=== PATIENT | female | born 1990 | race Caucasian/White ===

== ENCOUNTER 2016-06-13 05:17 | Inpatient (IN) | payer SELFPAY ==
--- NOTE | 2016-06-12 18:43 | History and Physical Report ---
History of Present Illness Date of examination: 06/12/16 Date of admission: 06/13/16 Chief complaint: pt presents for repeat c/s Past History Past Medical History: other (hx of depression) Past Surgical History: section (x2) Family/Genetic History: none Social history: no significant social history - Obstetrical History Expected Date of Delivery: 06/18/16 Actual Gestation: 39 Week(s) 1 Day(s) : 5 Hx # Term Pregnancies: 2 Number of Pregnancies: 1 Number of Living Children: 2 Medications and Allergies Allergies Allergy/AdvReac Type Severity Reaction Status Date / Time No Known Allergies Allergy Unverified 11/07/15 14:07 Home Medications Medication Instructions Recorded Confirmed Last Taken Type Famotidine [Pepcid] 20 mg PO BID #40 tablet 06/22/14 Unknown Rx Nitrofurantoin [place]/M-Cryst 100 mg PO Q12HR #14 capsule 06/22/14 Unknown Rx [Macrobid] Promethazine [Phenergan] 25 mg PO Q6H PRN #25 tablet 06/22/14 Unknown Rx Acetaminophen/Codeine [Tylenol #3] 1 tab PO Q6H PRN #10 tab 11/07/15 Unknown Rx Active Meds: Active Medications Citric Acid/Sodium Citrate (Bicitra) 30 ml PO ONCE ONE Stop: 06/12/16 18:37 Famotidine (Pepcid) 20 mg IV ONCE ONE Stop: 06/12/16 18:37 Cefazolin Sodium (Ancef/Sterile Water 2 Gm/20 Ml) 2 gm in 20 mls @ 80 mls/hr IV PREOP NR PRN Reason: Protocol Lactated Ringer's (Lactated Ringers) 1,000 mls @ 2,250 mls/hr IV PREOP JOSE Stop: 06/13/16 19:27 Oxytocin/Sodium Chloride (Pitocin/Ns 20 Unit/1000ml Drip) 20 units in 1,000 mls @ 0 mls/hr IV TITR OJSE PRN Reason: As Directed Lidocaine/Prilocaine (Emla) 1 applic TP ONCE PRN PRN Reason: for harrington catheter insertion Metoclopramide HCl (Reglan) 10 mg IV ONCE ONE Stop: 06/12/16 18:37 Review of Systems All systems: negative - Physical Exam Breasts: Positive: deferred Cardiovascular: Regular rate, Normal S1, Normal S2 Lungs: Positive: Clear to auscultation Abdomen: Positive: normal appearance Genitourinary (Female): Positive: normal external genitalia Vulva: both: normal Vagina: Positive: normal moisture Uterus: Positive: enlarged - Obstetrical FHR: auscultation normal Uterine Contraction Monitor Mode: External Cervical Dilatation: 0 Cervical Effacement Percentage: 0 station: -2 Uterine Contraction Pattern: Absent Results All other labs normal. Assessment and Plan iup at 39 weeks, previous c/s x2, hx of with congenital heart dz plan- prepare for repeat c/s.
[~2016-06-13 05:17] MED LIST: ANCEF/STERILE WATER 2 GM/20 ML 2 GM/20 ML SYRINGE IV NR; BICITRA PO ONE; EMLA TP PRN; PEPCID IV ONE; PITOCin/NS 20 UNIT/1000ML DRIP 20 UNITS/1,000 ML BAG IV SCH; REGLAN IV ONE
[2016-06-13] MEDS: LACTATED RINGERS 1,000 ML IV SCH ×2 (05:45→06:34)
[2016-06-13 06:20] LABS: Basophils % (Auto) 0.4 % (0.0-1.8); Eosinophils % (Auto) 2.3 % (0.0-4.3); Hematocrit 39.5 % (30.3-42.9); Hemoglobin 12.9 gm/dl (10.1-14.3); Mean Corpuscular HGB Conc 33 % (30-34); Mean Corpuscular Hemoglobin 29 pg (28-32); Mean Corpuscular Volume 89 fl (79-97); Platelet Count 176 K/mm3 (140-440); Red Blood Count 4.43 M/mm3 (3.65-5.03); White Blood Count 11.2 K/mm3 (4.5-11.0)
[2016-06-13] MEDS ORDERED: REGLAN ONE (06:59)
[2016-06-13] MEDS ORDERED: BICITRA ONE (06:59)
[2016-06-13] MEDS ORDERED: PEPCID IV ONE (06:59)
--- NOTE | 2016-06-13 07:20 | Anesthesia Day of Surgery ---
Anesthesia Day of Surgery - Day of Surgery Patient Examined: Yes Patient H&P Reviewed: Yes Patient is NPO: Yes
--- NOTE | 2016-06-13 07:20 | Anesthesia Consultation ---
Anesthesia Consult and Med Hx Date of service: 06/13/16 - Airway Anesthetic Teeth Evaluation: Good ROM Head & Neck: Adequate Mental/Hyoid Distance: Adequate Mallampati Class: Class II Intubation Access Assessment: Probably Good - Pre-Operative Health Status ASA Pre-Surgery Classification: ASA2 Proposed Anesthetic Plan: Spinal - Pulmonary Hx Asthma: No COPD: No Hx Pneumonia: No - Cardiovascular System Hx Hypertension: Yes (pih with 2015 ) - Central Nervous System Hx Seizures: No Hx Psychiatric Problems: Yes (depression 2014- no meds) - Endocrine Hx Renal Disease: No Hx End Stage Renal Disease: No Hx Hypothyroidism: No Hx Hyperthyroidism: No - Hematic Hx Anemia: No Hx Sickle Cell Disease: No - Other Systems Hx Alcohol Use: No
[2016-06-13] MEDS ORDERED: ZOFRAN IV PRN (07:30)
[2016-06-13] MEDS ORDERED: DILAUDID IV PRN (07:30)
[2016-06-13] MEDS ORDERED: WATER FOR IRRIG STERILE IR ONE (07:30)
[2016-06-13] MEDS ORDERED: PHENERGAN PO PRN (07:30)
[2016-06-13] MEDS ORDERED: PHENERGAN PR PRN (07:30)
[2016-06-13] MEDS ORDERED: BENADRYL IV PRN (07:30)
[2016-06-13] MEDS ORDERED: NACL 0.9% IR ONE (07:30)
[2016-06-13] MEDS ORDERED: MORPHINE ONE (07:30)
[2016-06-13] MEDS ORDERED: NARCAN 0.4 MG/1 ML IV PRN ×2 (07:30→12:00)
[2016-06-13] MEDS ORDERED: SODIUM CHLORIDE FLUSH SYRINGE 10 ML IV PRN ×2 (08:00→12:00)
[2016-06-13] MEDS ORDERED: NEO SYNEPHRINE/NS Syringe(OR USE) IV ONE (08:03)
[2016-06-13] MEDS ORDERED: NACL 0.9% 1000 ML 1,000 ML ONE (08:03)
--- NOTE | 2016-06-13 09:05 | Procedure Note ---
OB Delivery Note - Delivery Date of Delivery: 06/13/16 Surgeon: PRABHAKAR MAE Estimated blood loss: 1000cc - Section Preop diagnosis: repeat (low vertical) Postop diagnosis: same section procedure: section, repeat low transverse Disposition: PACU Complications: none - A at 1 minute: 9 at 5 minutes: 9 Infant Gender: Female (wt 7-10, anterior placenta noted thin window at lower uterine segment, placenta discarded)
--- NOTE | 2016-06-13 09:12 | Operative Report ---
Operative Report Operative Report: Preoperative diagnoses- Intrauterine at 39 weeks, previous c/s x 2 Postoperative diagnoses- same Procedure- Repeat low segment vertical section Surgeon- Dr. Catherine Hartmann Anesthesia- Spinal/epidural Findings- live female - wt 7-10, apgars 9 & 9, very thin lower uterine segment with large tortuous vessels laterally. thus low vertical incsion done Estimated blood loss- 1000ml Complications- none Instrument count- Correct Pathology specimens- Placenta - discarded NOTE- The LOWER UTERINE SEGMENT WAS SO THIN THAT FUTURE IS NOT RECOMMENDED FOR RISK OF UTERINE RUPTURE Patient was taken to the OR. Spinal/epidural anesthesia was instituted. Patient was then placed in the dorsolithotomy position and Holguin catheter was placed. Patient was then returned to the supine position and prepped and draped in usual sterile fashion. Level of anesthesia was checked and found to be adequate. A vertical skin incision was made. The incision was extended through the subcutaneous tissues to the fascia. Which was incised vertically using Mayos and pickups with teeth. The rectus muscle was then in the midline. The peritoneum was visualized, grasped with hemostats and opened using the Metzenbaum scissors. Upon entering the peritoneal cavity an sukhdeep retractor was placed appropriately. A vertical incision was made in the lower uterine segment using a scalpel. The uterine cavity was entered bluntly with the surgeon's finger and the incision was enlarged. The Head of the was delivered . The mouth and nose were suctioned and the remainder of the body was delivered . The cord was doubly clamped and cut . was given to the waiting team. The cord blood was obtained. The placenta was then delivered manually. The uterus is cleaned with a moist wet lap tape. The first layer of the uterus is closed with 0 Vicryl running interlocking stitch. The second layer of the uterus was closed with a 0 Vicryl imbricating stitch. The pelvic gutters were cleaned . Next the adnexa were examined and found to be normal. Next the fascia was closed with 0 Vicryl running suture. Next the subcutaneous tissue was reapproximated with 3-0 Vicryl running suture. The skin was reapproximated with a 4-0 Vicryl subcuticular stitch. Mastisol and Steri-Strips were placed . A pressure dressing was applied. The patient was transferred to recovery room in stable condition.
[2016-06-13] MEDS ORDERED: D5LR 1,000 ML IV SCH (12:00)
[2016-06-13] MEDS ORDERED: MORPHINE IV PRN (12:00)
[2016-06-13] MEDS ORDERED: LANSINOH TP PRN (12:00)
[2016-06-13] MEDS ORDERED: MYLICON PO PRN (12:00)
[2016-06-13] MEDS ORDERED: TUCKS PAD TP PRN (12:00)
[2016-06-13] MEDS ORDERED: PITOCin/NS 20 UNIT/1000ML DRIP 20 UNITS/1,000 ML BAG IV SCH (12:00)
[2016-06-13] MEDS: TORADOL IV PRN ×2 (12:00→18:19)
[2016-06-13] MEDS: ANCEF/NS 1 GM/50 ML 1 GM/50 ML BAG IV SCH (15:47)
[2016-06-13 20:40] LABS: Hematocrit 29.4 % (30.3-42.9); Hemoglobin 9.9 gm/dl (10.1-14.3)
[2016-06-13] MEDS ORDERED: MILK OF MAGNESIA PO PRN (22:00)
[2016-06-14] MEDS: TORADOL IV PRN (00:15)
[2016-06-14] MEDS: ANCEF/NS 1 GM/50 ML 1 GM/50 ML BAG IV SCH (00:17)
[2016-06-14] MEDS: FEOSOL PO SCH ×2 (00:20→10:37)
[2016-06-14] MEDS: PERCOCET 5/325 PO PRN ×3 (00:24→18:45)
--- NOTE | 2016-06-14 08:19 | Progress Note ---
Assessment and Plan pod 1 s/p , doing well. advance diet. Subjective - Subjective Date of service: 06/14/16 Principal diagnosis: pod 1 s/p repeat c/s Interval history: routine post op care Patient reports: appetite normal, voiding normally, pain well controlled [place]: doing well Objective - Vital Signs Latest vital signs: Vital Signs Temp Pulse Pulse Resp BP BP Pulse Ox 06/14/16 08:08 98.6 F 97 H 18 119/86 06/14/16 03:15 98.5 F 66 16 107/62 06/14/16 00:00 98.4 F 86 18 108/78 06/13/16 20:00 98.9 F 86 18 129/77 06/13/16 18:19 20 06/13/16 16:26 97.9 F 84 18 110/70 06/13/16 11:05 98.2 F 76 20 110/84 06/13/16 10:28 98.1 F 85 12 134/86 98 06/13/16 10:15 98.1 F 85 12 134/86 98 06/13/16 10:00 103 H 17 129/79 99 06/13/16 09:40 103 H 17 124/80 100 06/13/16 09:25 84 12 116/78 100 06/13/16 09:10 99 H 12 104/68 100 06/13/16 09:05 87 19 118/88 100 06/13/16 09:00 91 H 14 108/68 100 06/13/16 08:58 97.5 F L 87 14 104/58 100 Intake and Output 06/13/16 06/14/16 06/14/16 22:59 06:59 14:59 Intake Total 840 360 360 Output Total 150 1000 Balance 690 -640 360 Intake: IV 600 ANCEF/NS 1 GM/50 ML 1 gm 100 In 50 ml @ 100 mls/hr IV Q8H JOSE Rx#:[id number] D5lr 1,000 ml @ 125 mls/ 500 hr IV DIRECT JOSE Rx#: [id number] Oral 360 Intake, Free Water 240 360 Output: Urine 150 1000 Indwelling Catheter 1000 Other: Total, Intake Amount 360 Total, Output Amount 1000 Voiding Method Indwelling Catheter Toilet - Exam Breasts: Present: deferred Cardiovascular: Present: Regular rate, Normal S1, Normal S2 Lungs: Present: Clear to auscultation Abdomen: Present: normal appearance, soft Vulva: both: normal Uterus: Present: normal, firm Extremities: Present: normal Deep Tendon Reflex Grade: Normal +2 Incision: Present: normal, dry, intact - Labs Labs: Abnormal lab results 06/13/16 Range/Units 20:27 Hgb 9.9 L D (10.1-14.3) gm/dl Hct 29.4 L D (30.3-42.9) %
[2016-06-14] MEDS: MOTRIN PO PRN ×2 (08:36→18:45)
--- NOTE | 2016-06-14 12:28 | Post Anesthesia Evaluation ---
- Post Anesthesia Evaluation Patient Participated: Yes Airway Patent: Yes Stable Respiratory Function: Yes Nausea/Vomiting: No Temp > 96.8F: Yes Pain Manageable: Yes Adequeate Hydration: Yes Anesthesia Complications: No Block Receding Appropriately: Yes Patient on Ventilator: No
--- NOTE | 2016-06-14 12:29 | Progress Note ---
Subjective Date of service: 06/14/16 Principal diagnosis: pod 1 s/p repeat c/s Interval history: Patient is s/p C/section under epidural. POD #1. Patient has no anesthesia complaints. She is ambulating and voiding without difficulty. Patient pain is well controlled. Objective - Constitutional Vitals: Vital Signs - 12hr 06/14/16 06/14/16 03:15 08:08 Temperature 98.5 F 98.6 F Pulse Rate [ 66 97 H Right] Respiratory 16 18 Rate Blood Pressure 107/62 119/86 [Right Arm] - Labs CBC & Chem 7: 06/13/16 20:27 Labs: Abnormal lab results 06/13/16 Range/Units 20:27 Hgb 9.9 L D (10.1-14.3) gm/dl Hct 29.4 L D (30.3-42.9) %
[2016-06-15] MEDS: MOTRIN PO PRN ×2 (03:40→18:15)
[2016-06-15] MEDS: PERCOCET 5/325 PO PRN ×3 (03:40→16:00)
[2016-06-15] MEDS ORDERED: BOOSTRIX IM ONE (06:00)
--- NOTE | 2016-06-15 08:19 | Progress Note ---
Assessment and Plan ppd 2 s/p repeat c/s. plan d/c home tomorrow am if stable Subjective - Subjective Date of service: 06/15/16 Principal diagnosis: pod 2 s/p repeat c/s Interval history: routine post op care Patient reports: appetite normal, voiding normally, pain well controlled : doing well Objective - Vital Signs Latest vital signs: Vital Signs Temp Pulse Resp BP 06/14/16 23:30 98.2 F 96 H 20 120/86 06/14/16 16:05 98.2 F 73 20 128/80 Intake and Output 06/14/16 06/15/16 06/15/16 22:59 06:59 14:59 Intake Total 360 Output Total 800 Balance -440 Intake: Oral 360 Output: Urine 800 Void 800 Other: Total, Intake Amount 120 Total, Output Amount 800 Voiding Method Toilet # Voids Void 1 - Exam Breasts: Present: deferred Cardiovascular: Present: Regular rate, Normal S1, Normal S2 Lungs: Present: Clear to auscultation Abdomen: Present: normal appearance, soft Vulva: both: normal Uterus: Present: normal, firm Extremities: Present: normal Deep Tendon Reflex Grade: Normal +2 Incision: Present: normal, dry, intact
--- NOTE | 2016-06-15 08:20 | Discharge Summary ---
Providers - Providers Date of Admission: 06/13/16 05:17 Date of discharge: 06/16/16 Attending physician: PRABHAKAR MAE Primary care physician: PRABHAKAR MAE Hospitalization Reason for admission: section Delivery: Procedure: section, repeat low transverse Procedure details: s/p rlstcs. delivery of a female Episiotomy: none Laceration: none Incision: normal, intact Other procedures: none complications: none Discharge diagnosis: IUP at term delivered baby: female Hospital course: routine pp course. plan d/s home tomorrow am Condition at discharge: Good Disposition: DISCHARGED TO HOME OR SELFCARE - Discharge Diagnoses (1) Status post repeat low transverse section Status: Acute (2) Anemia Status: Acute Qualifiers: Anemia type: A Iron deficiency anemia type: I Vitamin B12 deficiency anemia type: V Folate deficiency anemia type: F Bone marrow failure anemia type: B Hemolytic anemia type: H Other causes of anemia: O Comment: acute from blood loss at delivery Plan - Discharge Medications Prescriptions: Ferrous Sulfate [Feosol 325 MG tab] 325 mg PO BID #60 tablet Ibuprofen [Motrin 800 MG tab] 800 mg PO Q8HR PRN #30 tablet PRN Reason: Pain oxyCODONE /ACETAMINOPHEN [Percocet 5/325] 1 tab PO Q6HR PRN #30 tablet PRN Reason: Pain - Provider Discharge Summary Activity: routine, no sex for 6 weeks, no heavy lifting 4 weeks, no strenuous exercise Diet: routine Instructions: routine Additional instructions: [] Smoking cessation referral if applicable(refer to patient education folder for contact #) [] Refer to [facility]'s [facility] Center Booklet Call your doctor immediately for: * Fever > 100.5 * Heavy vaginal bleeding ( >1 pad per hour) * Severe persistent headache * Shortness of breath * Reddened, hot, painful area to leg or breast * Drainage or odor from incision. * Keep incision clean and dry at all times and follow doctor's instructions regarding bathing/showering - Follow up plan Follow up: PRABHAKAR MAE MD [Primary Care Provider] - 14 Days
[2016-06-15] MEDS: FEOSOL PO SCH ×3 (10:15→22:21)
[2016-06-16] MEDS: PERCOCET 5/325 PO PRN ×2 (00:13→10:41)
[2016-06-16] MEDS: MOTRIN PO PRN (05:35)
[2016-06-16 09:39] VITALS: BP 137/89
[2016-06-16] MEDS: FEOSOL PO SCH (10:09)
== END 2016-06-16 13:20 | disposition home or self-care (01) | DRG 765 ==
LOC: APU 05:17 → OB 10:36
PROVIDERS: ADMIT Specialist; ATTEND Specialist
PROC: 10D00Z1 Extraction of Products of Conception, Low, Open Approach (ICD-10-PCS; principal; 2016-06-13)
PROC: 3E0234Z Introduction of Serum, Toxoid and Vaccine into Muscle, Percutaneous Approach (ICD-10-PCS; 2016-06-15)
DX: O34.211 Maternal care for low transverse scar from previous cesarean delivery (principal); D62 Acute posthemorrhagic anemia; O99.344 Other mental disorders complicating childbirth; O90.81 Anemia of the puerperium; Z3A.39 39 weeks gestation of pregnancy; Z37.0 Single live birth; Z23 Encounter for immunization
CPT/HCPCS: 36415; 85014; 85018; 85025; 86850; 86900; 86901; 90471; 90715; 99211; G0463; J0690; J1885; J2270; J2370; J2405; J2590; J2765; J7030; J7120; J7121